=== PATIENT | male | born 1945 | race Caucasian/White ===

== ENCOUNTER 2019-09-16 10:19 | Emergency (ER) | payer MEDICARE ==
[2019-09-16 10:27] VITALS: TEMP 97.9
[2019-09-16] MEDS ORDERED: DIPH,PERTUS(ACELL)TETVAC-LF 0.5 ML VIAL IM ONE (10:39)
[2019-09-16] MEDS ORDERED: LIDOCAINE 1% INJ 10MG/ML (20 ML MDV) SQ ONE (10:39)
--- NOTE | 2019-09-16 10:44 | ED ---
Head Injury HPI <Lobo Dial - Last Filed: 09/16/19 11:26> - General Source: patient Mode of arrival: wheelchair Limitations: no limitations <Bk Moura - Last Filed: 09/16/19 12:08> - General Chief complaint: Head Injury Stated complaint: Slipped on ice/head laceration Time Seen by Provider: 09/16/19 10:28 - History of Present Illness Initial comments: Patient is a 74-year-old male presenting to emergency Department with a chief complaint of fall. Patient states he was walking to her garage from his entrance door of the house, when he slipped on a patch of ice and landed almost in the right side causing an injury to the right frontotemporal region. Patient reports possible loss of consciousness. States he does not recall the fall but was able to pick himself off the ground and walked back inside the house. Patient is not on blood thinners. He reports minimal discomfort at this time. He does report some active bleeding after the injury which has since resolved. Not aware of his tetanus status. Denies any headaches, blurred vision, light headedness, dizziness, one-sided weakness or paresthesias. (Bk Moura) - Related Data Allergies/Adverse reactions: Allergies Allergy/AdvReac Type Severity Reaction Status Date / Time Sulfa (Sulfonamide Allergy Swelling Verified 09/16/19 10:21 Antibiotics) Review of Systems ROS Other: All systems not noted in ROS Statement are negative. <Lobo Dial - Last Filed: 09/16/19 11:26> ROS Other: All systems not noted in ROS Statement are negative. <Bk Moura - Last Filed: 09/16/19 12:08> ROS Statement: Those systems with pertinent positive or pertinent negative responses have been documented in the HPI. Past Medical History Past Medical History: Hyperlipidemia, Hypertension History of Any Multi-Drug Resistant Organisms: None Reported Past Surgical History: Adenoidectomy, Tonsillectomy Past Psychological History: No Psychological Hx Reported Smoking Status: Former smoker Past Alcohol Use History: Occasional Past Drug Use History: None Reported <Bk Moura - Last Filed: 09/16/19 12:08> General Exam Limitations: no limitations General appearance: alert, in no apparent distress Head exam: Present: normocephalic. Absent: atraumatic (3 cm laceration on the right frontotemporal region), normal inspection (.), other (Negative Avendaño sign, negative hemotympanum, negative periorbital ecchymosis.) Eye exam: Present: normal appearance, PERRL, EOMI Pupils: Present: normal accommodation ENT exam: Present: normal exam, normal oropharynx (No oral trauma), mucous membranes moist, TM's normal bilaterally, normal external ear exam Neck exam: Present: normal inspection, full ROM. Absent: tenderness (No midline cervical tenderness.) Respiratory exam: Present: normal lung sounds bilaterally Cardiovascular Exam: Present: regular rate, normal rhythm, normal heart sounds Extremities exam: Present: normal inspection, full ROM, normal capillary refill Back exam: Present: normal inspection, full ROM. Absent: tenderness Neurological exam: Present: alert, oriented X3, CN II-XII intact, normal gait Psychiatric exam: Present: normal affect, normal mood Skin exam: Present: warm, dry, intact, normal color <Bk Moura - Last Filed: 09/16/19 12:08> Course <Lobo Dial - Last Filed: 09/16/19 11:26> Vital Signs 09/16/19 09/16/19 10:21 11:31 Temperature 97.9 F Pulse Rate 83 82 Respiratory 18 16 Rate Blood Pressure 155/82 144/80 O2 Sat by Pulse 98 99 Oximetry - Reevaluation(s) Reevaluation #1: 09/16/19 11:26 PA supervision: I proceeded [id number] evaluation the patient he did slip and fall in his garage this morning striking the right side of his head. Is unclear whether he had any loss of consciousness he did complain some headache afterwards no neck or back pain no loss of function to his upper or lower extremities. She did have a small amount of subarachnoid blood and intraparenchymal blood in the left frontal region consistent with a contrecoup injury. No associated edema or mass effect at this time no other hemorrhagic lesions seen. Patient is awake alert [place] Coma Scale of 15 at this time. Due to the nature of the injury and the findings patient will require transfer to a higher level trauma Center for evaluation he is in agreement with this he will be transferred to [facility] (Lobo Dial) Procedures - Laceration Laceration #1 Consent Obtained: verbal consent Indication: laceration Site: scalp Size (cm): 4 Description: linear Depth: simple, single layer, arterial injury Sedation/Analgesia: none Anesthetic Used: lidocaine 1% Anesthesia Technique: local infiltration Amount (mls): 5 Pre-repair: irrigated extensively Type of Sutures: nylon, vicryl Size of Sutures: 4-0 Number of Sutures: 6 Technique: simple, interrupted Complications: pain Patient Tolerated Procedure: well, no complications <Bk Moura - Last Filed: 09/16/19 12:08> Medical Decision Making <Bk Moura - Last Filed: 09/16/19 12:08> - Medical Decision Making Patient is 74-year-old male presenting to emergency Department with a chief complaint of a fall. Patient slipped on ice and fell on the right frontotemporal region but had. Patient does have a 4 cm laceration. Patient is not on blood thinners. No focal deficits. Patient is awake and alert. gcs of 15. Laceration site was repaired with 4 sutures and 2 [id number] sutures due to an arterial bleed. Patient was given tetanus vaccination. CT of the C- spine is unremarkable. Patient did have a small amount of subarachnoid blood and intraparenchymal blood in the left frontal region consistent with a contrecoup injury. Reevaluation patient is still asymptomatic. I spoke with Dr. Beyer from [facility] for transfer. They will accept the patient. Transfer pending. Dr. Dial also examined the patient and is in agreement with the treatment plan. Patient will be transferred with ambulance. IV line established. Patient hemodynamically stable. with a medically stable. (Bk Moura) Disposition <Lobo Dial - Last Filed: 09/16/19 11:26> Is patient prescribed a controlled substance at d/c from ED?: No Time of Disposition: 12:08 - Out of Hospital Transfer - Req. Specs Out of Hospital Transfer - Requested Specifics: Other Emergency Center ([facility]) <Bk Moura - Last Filed: 09/16/19 12:08> Clinical Impression: Subarachnoid bleed, Laceration, Head injury, Fall, Intraparenchymal hemorrhage of brain Disposition: OTHER INSTITUTION NOT DEFINED Condition: Good Instructions (If sedation given, give patient instructions): Craniotomy for a Brain Bleed (DC) Additional Instructions: Patient will be transferred via ambulance. Referrals: Fortunato Phelps MD [Primary Care Provider] - 1-2 days
--- NOTE | 2019-09-16 11:14 | CT ---
EXAMINATION TYPE: CT brain riannaine wo con DATE OF EXAM: 09/16/2019 COMPARISON: NONE HISTORY: Fall, open wound Rt side of head CT DLP: 1359.6 mGycm Automated exposure control for dose reduction was used. TECHNIQUE: CT scan of the head and cervical spine are performed without contrast. FINDINGS: BRAIN: There is a small amount of subarachnoid and intraparenchymal blood in the left frontal region. There is no associated edema or mass effect. No other hemorrhagic lesions are seen. Central structur es are midline. There is no evidence of hydrocephalus. No acute focal lesion, mass effect or midline shift is seen. I do not see evidence of intracranial blood. Visualized portions of the paranasal sinuses and mastoid air are clear. There is a scalp laceration i n the left frontotemporal region. IMPRESSION: CONTRECOUP INJURY INCLUDING SOME MINIMAL SUBARACHNOID AND INTRAPARENCHYMAL BLOOD ON THE LEFT SIDE IN THE FRONTAL REGION OPPOSITE TO THE SITE OF IMPACT. CERVICAL SPINE: Mild emphysematous changes within the lungs. Prevertebral soft tissues are normal. There is straightening of the normal cervical lordosis. Alignment is maintained. Atlantoaxial relatio nships are normal. There is degenerative disc disease and mild hypertrophic spondylosis at all levels with relative spar ing of C3-4. There is uncovertebral joint disease which is mild and most marked at C4-5. There is fac et arthropathy present bilaterally at C2-3 and C3-4 and on the right at C4-5 and bilaterally at C5-6 and C6-7. No definite protrusion is seen. No fracture is seen. IMPRESSION: 1. NO ACUTE OSSEOUS LESION. 2. DEGENERATIVE CHANGE. This report was phoned to Dr. Dial in the ER at the time of reporting.
[2019-09-16 11:32] VITALS: BP 144/80; PULSE 82
[2019-09-16 12:21] VITALS: RESP 20
== END 2019-09-16 12:20 | disposition other institution (70) ==
LOC: EC 10:19
DX: S06.6X9A Traumatic subarachnoid hemorrhage with loss of consciousness of unspecified duration, initial encounter (principal); S01.01XA Laceration without foreign body of scalp, initial encounter; Z23 Encounter for immunization; I10 Essential (primary) hypertension; Z88.2 Allergy status to sulfonamides; Z87.891 Personal history of nicotine dependence; W00.0XXA Fall on same level due to ice and snow, initial encounter; Y93.01 Activity, walking, marching and hiking
CPT/HCPCS: 72125; 70450; 90715; 99285; 12002; 90471; J2001

== ENCOUNTER → 2019-09-28 | Outpatient (CLI) | payer MEDICARE ==
[2019-09-28 10:43] LABS: African American GFR (CKD) >90 (>60 ml/min/1.73 sqM); Blood Urea Nitrogen 17 mg/dL (9-20); Non-African American GFR(CKD) 87 (>60 ml/min/1.73 sqM)
== END | disposition home or self-care (01) ==
LOC: LABWHC1 09:19
PROVIDERS: ATTEND Internal Medicine
DX: Z09 Encounter for follow-up examination after completed treatment for conditions other than malignant neoplasm (principal); Z86.79 Personal history of other diseases of the circulatory system
CPT/HCPCS: 36415; 82565; 84520

== ENCOUNTER → 2019-09-29 | Outpatient (CLI) | payer MEDICARE ==
--- NOTE | 2019-10-01 08:25 | CT ---
EXAMINATION TYPE: CT brain w con DATE OF EXAM: 09/29/2019 COMPARISON: September 16, 2019 HISTORY: Follow-up bleed CONTRAST: CT scan of the head is performed with IV Contrast, patient injected with 100 mL of Isovue 300. Contrast-enhanced CT was performed. There is left frontal leptomeningeal enhancement at the site of p rior subarachnoid hemorrhage. Small residual subarachnoid hemorrhage is difficult to exclude. No leidy tional areas of pathologic enhancement. Ventricles are midline. Bony calvarium is intact. IMPRESSION: There is left frontal leptomeningeal enhancement at the site of prior subarachnoid hemorr beverly. Small residual subarachnoid hemorrhage is difficult to exclude. Obtain follow-up advised. Follo w-up study should include unenhanced followed by contrast enhanced evaluation.
== END | disposition home or self-care (01) ==
LOC: RADCTMAIN 13:23
PROVIDERS: ATTEND Internal Medicine
DX: Z09 Encounter for follow-up examination after completed treatment for conditions other than malignant neoplasm (principal); R93.0 Abnormal findings on diagnostic imaging of skull and head, not elsewhere classified; Z86.79 Personal history of other diseases of the circulatory system; Z88.2 Allergy status to sulfonamides
CPT/HCPCS: 70460; Q9967

== ENCOUNTER → 2021-05-29 | Outpatient (CLI) | payer MEDICARE | END | disposition home or self-care (01) | LOC: LABWHC1 10:12 | PROVIDERS: ATTEND Radiology Radiation Oncology | DX: Z08 Encounter for follow-up examination after completed treatment for malignant neoplasm (principal); C61 Malignant neoplasm of prostate; Z92.3 Personal history of irradiation | CPT/HCPCS: 36415; 84153 ==

== ENCOUNTER → 2022-02-25 | Outpatient (CLI) | payer MEDICARE | END | disposition home or self-care (01) | LOC: LABWHC1 07:11 | PROVIDERS: ATTEND Radiology Radiation Oncology | DX: Z08 Encounter for follow-up examination after completed treatment for malignant neoplasm (principal); C61 Malignant neoplasm of prostate; Z85.46 Personal history of malignant neoplasm of prostate; Z92.3 Personal history of irradiation | CPT/HCPCS: 36415; 84153 ==

== ENCOUNTER → 2024-09-10 | Outpatient (CLI) | payer MEDICARE ==
--- NOTE | 2024-09-10 17:10 | US ---
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 HTN- on meds. Additional History: .... TECHNIQUE: Grayscale, color Doppler and spectral Doppler evaluation of the bilateral carotid systems and vertebral arteries. Indirect Doppler criteria was utilized. FINDINGS: EXAM MEASUREMENTS: RIGHT: Peak Systolic Velocity (PSV) cm/sec ----- Right CCA: 83.7 ----- Right ICA: 116.0 ----- Right ECA: 155.0 ICA/CCA ratio: 1.4 RIGHT: End Diastole cm/sec ----- Right CCA: 14.8 ----- Right ICA: 24.0 ----- Right ECA: 17.2 LEFT: Peak Systolic Velocity (PSV) cm/sec ----- Left CCA: 87.7 ----- Left ICA: 119.0 ----- Left ECA: 117.0 ICA/CCA ratio: 1.4 LEFT: End Diastole cm/sec ----- Left CCA: 19.5 ----- Left ICA: 27.1 ----- Left ECA: 11.7 VERTEBRALS (direction of flow): Right Vertebral: Antegrade Left Vertebral: Antegrade Rhythm: Normal GATE AGENT NOTES: Elevated right ECA velocity. Plaque seen left bulb. Color Doppler imaging shows patency with blood flow throughout the carotid artery. Spectral waveforms are within normal limits. IMPRESSION: Right: No hemodynamically significant stenosis. Left: No hemodynamically significant stenosis. Criteria for Assigning % of Stenosis / Diameter reduction (Estimation based on the indirect measurements of the internal carotid artery velocities (ICA PSV). 1. Normal (no stenosis)=ICA PSV < 125 cm/s: ratio < 2.0: ICA EDV<40 cm/s. 2. Less than 50% stenosis=ICA PSV < 125 cm/s: ratio < 2.0: ICA EDV<40 cm/s. 3. 50 to 69% stenosis=ICA PSV of 125 to 230 cm/s: ration 2.0 ? 4.0: ICA EDV 40-100 cm/s. 4. Greater than 70% stenosis to near occlusion= ICA PSV > 230 cm/s: ratio > 4.0: ICA EDV > 100 cm/s. 5. Near occlusion= ICA PSV velocities may be low or undetectable: variable ratio and ICA EDV. 6. Total occlusion=unable to detect flow. [facility], , 09/10/2024 5:08 PM
--- NOTE | 2024-09-10 17:56 | MR ---
CLINICAL INDICATION: G31.84 COMPARISON: CT brain 09/29/2019 TECHNIQUE: MR angiography of the head was performed utilizing 3-D noncontrast time of flight images. 3-D reformatted MIP images were generated on a separate workstation for review. Vascular assessment was performed utilizing NASCET criteria. FINDINGS: There is no evidence for focal stenosis, large vessel occlusion, or discrete aneurysm. IMPRESSION: No evidence for focal stenosis, occlusion or aneurysm. [facility], , 09/10/2024 5:54 PM
== END | disposition home or self-care (01) ==
LOC: RADUSWWP 16:02
PROVIDERS: ATTEND Family Medicine
DX: G31.84 Mild cognitive impairment of uncertain or unknown etiology (principal); R42 Dizziness and giddiness; I10 Essential (primary) hypertension
CPT/HCPCS: 70544; 93880